=== PATIENT | female | born 1955 | race African-American/Black ===

== ENCOUNTER 2021-05-24 11:41 | Observation (INO) ==
[2021-05-24 12:48] LABS: Basophils % 0.3 % (0.0-0.8); Eosinophils # 0.2 10*3/uL (0.0-0.87); Eosinophils % 2.5 % (0.00-10.9); Hematocrit 38.3 VOL% (35.7-47.0); Hemoglobin 12.3 GM/DL (12.0-16.0); Immature Granulocytes % 0.1 %; Immature Granulocytes Absolute 0.01 #; Lymphocytes # 4.7 10*3/uL (1.4-4.0); Lymphocytes % 67.6 % (21.3-54.2); Mean Corpuscular HGB Conc 32.1 GM/DL (32-36); Mean Corpuscular Volume 92.5 FL (87-102); Mean Platelet Volume 8.9 FL (9.6-12.0); Neutrophils % 21.5 % (38.7-73.9); Platelet Count 263 T/CUMM (130-400); Red Blood Count 4.14 MC/CUMM (3.8-5.5); Red Cell Distribution Width 12.5 % (9.3-17.3); White Blood Count 6.9 T/CUMM (4-12)
[2021-05-24 12:57] LABS: Albumin 3.5 G/DL (3.4-5.0); Bilirubin,Total 0.5 MG/DL (0.20-1.00); Calcium 8.9 MG/DL (8.5-10.1); Potassium 3.8 MMOL/L (3.5-5.1); Total Protein 7.3 G/DL (6.4-8.2)
[2021-05-24] MEDS ORDERED: cefTRIAXone 1,000 MG in SODIUM CHLORIDE 0.9% 100 ML IV STA (12:59)
[2021-05-24 13:07] LABS: Eosinophils 4 % (0-10); Hypochromasia Slight; Lymphocytes 72 % (20-55); Microcytosis Slight; Platelet Estimate Adequate; Segmented Neutrophils 14 % (50-85); Total Cells Counted 100
[2021-05-24 13:08] LABS: Atypical Lymphocytes Few
[2021-05-24 15:00] LABS: Bacteria,Urine Occasional /HPF (Few); Bilirubin,Urine Negative (Negative); Blood, Urine Negative (Negative); Glucose,Urine (UA) Negative (Negative); Ketones,Urine Negative (Negative); Nitrite,Urine Negative (Negative); Protein,Urine Negative; RBC,Urine 1 /HPF (0-4); Squamous Epithelial Cell,Urine Occasional /HPF (0-10); Urine Appearance CLEAR (Clear); Urine Color Yellow (Yellow); Urine Specific Gravity 1.008 (1.001-1.035); Urine Urobilinogen < 2.0 EU/DL (0.2-1.0)
[2021-05-24] MEDS ORDERED: DEXTROSE 50% 25 GM/50 ML VIAL IV PRN (16:29)
[2021-05-24] MEDS ORDERED: GLUCAGON 1 MG VIAL IM PRN (16:29)
[2021-05-24] MEDS: traMADol 50 MG TABLET PO PRN (17:37)
[2021-05-24] MEDS ORDERED: ALBUTEROL 2.5 MG/3 ML NEB RESP TX PRN (19:00)
[2021-05-24] MEDS: DULoxetine 30 MG CAPSULE PO SCH (20:20)
[2021-05-24] MEDS: FLUTICASONE 50 MCG NASAL SPRAY 16 GM BOTTLE BOTH NARES SCH (20:20)
[2021-05-24] MEDS: INSULIN LISPRO 100 UNIT/ML SUBCUT SCH (20:21)
[2021-05-25 06:40] LABS: Basophils % 0.5 % (0.0-0.8); Eosinophils # 0.2 10*3/uL (0.0-0.87); Eosinophils % 2.5 % (0.00-10.9); Hematocrit 35.6 VOL% (35.7-47.0); Hemoglobin 11.5 GM/DL (12.0-16.0); Immature Granulocytes % 0.2 %; Immature Granulocytes Absolute 0.01 #; Lymphocytes # 3.6 10*3/uL (1.4-4.0); Lymphocytes % 60.9 % (21.3-54.2); Mean Corpuscular HGB Conc 32.3 GM/DL (32-36); Mean Corpuscular Volume 92.5 FL (87-102); Mean Platelet Volume 8.8 FL (9.6-12.0); Monocytes % 9.2 % (1.7-12.7); Neutrophils % 26.7 % (38.7-73.9); Platelet Count 229 T/CUMM (130-400); Red Blood Count 3.85 MC/CUMM (3.8-5.5); Red Cell Distribution Width 12.5 % (9.3-17.3)
[2021-05-25 07:03] LABS: Atypical Lymphocytes Few; Eosinophils 2 % (0-10); Lymphocytes 74 % (20-55); Segmented Neutrophils 16 % (50-85); Total Cells Counted 100
[2021-05-25 07:04] LABS: Hypochromasia Slight; Microcytosis 1+; Platelet Estimate Normal
[2021-05-25 07:06] LABS: Osmolality,Calculated 274.5 MOS/KG (273-304); Potassium 3.7 MMOL/L (3.5-5.1)
[2021-05-25] MEDS ORDERED: TORSEMIDE 20 MG TABLET PO SCH (09:00)
[2021-05-25] MEDS: POTASSIUM CHLORIDE 10 MEQ TABLET PO SCH (09:46)
[2021-05-25] MEDS: DULoxetine 30 MG CAPSULE PO SCH ×2 (09:47→20:20)
[2021-05-25] MEDS: NEBIVOLOL 10 MG TABLET PO SCH (09:47)
[2021-05-25] MEDS: SIMVASTATIN 10 MG TABLET PO SCH (09:48)
[2021-05-25] MEDS: ASPIRIN CHEW 81 MG TABLET PO SCH (09:48)
[2021-05-25] MEDS: INSULIN LISPRO 100 UNIT/ML SUBCUT SCH ×4 (09:49→20:24)
[2021-05-25] MEDS: FLUTICASONE 50 MCG NASAL SPRAY 16 GM BOTTLE BOTH NARES SCH ×2 (09:51→20:23)
[2021-05-25] MEDS: SODIUM CHLORIDE 0.9% 1,000 ML IV SCH (14:00)
[2021-05-25] MEDS: traMADol 50 MG TABLET PO PRN (20:21)
[2021-05-26] MEDS: SODIUM CHLORIDE 0.9% 1,000 ML IV SCH ×2 (02:11→09:28)
[2021-05-26 07:46] VITALS: BP 144/57
[2021-05-26] MEDS ORDERED: KETOROLAC 10 MG TABLET PO PRN (08:29)
[2021-05-26] MEDS ORDERED: LINACLOTIDE 145 MCG CAPSULE PO SCH (08:30)
[2021-05-26] MEDS ORDERED: cefTRIAXone 1,000 MG in SODIUM CHLORIDE 0.9% 100 ML IV SCH (09:00)
[2021-05-26] MEDS: NEBIVOLOL 10 MG TABLET PO SCH (09:18)
[2021-05-26] MEDS: POTASSIUM CHLORIDE 10 MEQ TABLET PO SCH (09:19)
[2021-05-26] MEDS: SIMVASTATIN 10 MG TABLET PO SCH (09:19)
[2021-05-26] MEDS: DULoxetine 30 MG CAPSULE PO SCH (09:20)
[2021-05-26] MEDS: ASPIRIN CHEW 81 MG TABLET PO SCH (09:20)
[2021-05-26] MEDS: FLUTICASONE 50 MCG NASAL SPRAY 16 GM BOTTLE BOTH NARES SCH (09:24)
[2021-05-26] MEDS: INSULIN LISPRO 100 UNIT/ML SUBCUT SCH ×2 (09:30→12:25)
== END 2021-05-26 14:40 | disposition home or self-care (01) ==
LOC: N.ED 11:41 → N.EDINP 11:41 → N.TELES 15:46
PROVIDERS: ADMIT Family Medicine; ATTEND Family Medicine